=== PATIENT | male | born 1985 ===

== ENCOUNTER 2022-07-28 07:00 | Outpatient (CLI) | payer OTHER ==
--- NOTE | 2022-07-28 19:15 | XRAY Report ---
PROCEDURE: Finger(s) LT INDICATIONS: UNSPECIFIED MULTIPLE INJURIES TO 4TH AND 5TH DIGITS OF LEFT HAND TECHNIQUE: 3 views of the fourth finger(s) acquired. COMPARISON: None. FINDINGS: Bones: No fractures or dislocations. No suspicious bony lesions. Soft tissues: No suspicious soft tissue calcifications or masses. IMPRESSION: No acute bony abnormality. Reviewed by: Scott Almanzar MD on 07/28/2022 6:14 PM AKDT Approved by: Scott Almanzar MD on 07/28/2022 6:14 PM AKDT Station ID: [id number]
== END 2022-07-28 23:59 | disposition home or self-care (01) ==
LOC: DI.S 07:00
PROVIDERS: ATTEND Emergency Medicine
DX: S69.92XA Unspecified injury of left wrist, hand and finger(s), initial encounter (principal)